=== PATIENT | male | born 1955 | race African-American/Black ===

== ENCOUNTER 2019-06-08 09:47 | Emergency (ER) | payer BC ==
[~2019-06-08] VITALS: Ht 190.5 cm; Wt 131.5 kg
[2019-06-08 10:36] VITALS: BP 161/89
--- NOTE | 2019-06-08 11:19 | RAD ---
EXAM: CT HEAD WITHOUT CONTRAST. HISTORY: Headache, hypertension. TECHNIQUE: Computed tomography of the head was performed without intravenous contrast. One or more of the following individualized dose reduction techniques were utilized for this examination: 1. Automated exposure control. 2. Adjustment of the mA and/or kV according to patient size. 3. Use of iterative reconstruction technique. COMPARISON: None. FINDINGS: There is no intracranial hemorrhage. Rocha-white differentiation is preserved. There is mild senescent volume loss. There is a small mucus retention cyst in the ethmoid air cells. The orbits are unremarkable. The temporal bones are unremarkable. The calvarium reveals no suspicious lesions. IMPRESSION: 1. No acute intracranial findings. Electronically signed by: Katiuska Ly MD (06/08/2019 11:16 AM) [facility]
--- NOTE | 2019-06-08 11:47 | RAD ---
CHEST PA LATERAL History: Headache, high blood pressure Comparison: November 28, 2010 Findings: 2 views of the chest are submitted. There is no infiltrate, pneumothorax, or effusion. Pericardial cardiac silhouette is within normal limits in size. Impression: 1. There is no radiographic evidence of acute cardiopulmonary disease. Electronically signed by: Eyal Ayers MD (06/08/2019 11:44 AM) [facility]
[2019-06-08 11:55] LABS: CALCIUM 9.5 mg/dL (8.5-10.1); CREATININE 1.1 mg/dL (0.7-1.3); GFR 82.3; POTASSIUM 3.6 mmol/L (3.5-5.1)
[2019-06-08 11:56] LABS: BASO % 1 % (0-3); EOS # 0.1 x10^3/uL (0.0-0.7); EOS % 2 % (0-3); HEMATOCRIT 43.3 % (39.0-53.0); HEMOGLOBIN 14.3 g/dL (13.0-17.5); LYMPH % 30 % (24-48); MEAN CORPUSCULAR HEMOGLOBIN 28 pg (25-35); MEAN CORPUSCULAR HGB CONC 33 g/dL (31-37); MEAN CORPUSCULAR VOLUME 85 fL (79-100); MONO # 0.4 x10^3/uL (0.0-1.1); MONO % 10 % (0-9); NEUT # 1.9 x10^3/uL (1.8-7.7); NEUT % 56 % (31-73); PLATELET COUNT 231 x10^3/uL (140-400); RED CELL DISTRIBUTION WIDTH 20.4 % (11.5-14.5); WHITE BLOOD COUNT 3.5 x10^3/uL (4.0-11.0)
[2019-06-08 12:01] LABS: ALBUMIN 4.2 g/dL (3.4-5.0); ALBUMIN/GLOBULIN RATIO 1.3 (1.0-1.7); MAGNESIUM 1.7 mg/dL (1.8-2.4); TOTAL BILIRUBIN 0.6 mg/dL (0.2-1.0); TOTAL PROTEIN 7.5 g/dL (6.4-8.2)
--- NOTE | 2019-06-08 13:17 | PHYS DOC ---
Past Medical History Past Medical History: GERD, High Cholesterol, Hypertension, Other Additional Past Medical Histor: SEASONAL ALLERGIES Past Surgical History: Other Additional Past Surgical Histo: BILATERAL KNEE ARTHROSCOPY, ROTATOR CUFF Alcohol Use: Occasionally Drug Use: None Adult General Chief Complaint Chief Complaint: HYPERTENSION HPI HPI Patient is a 63 year old male patient with history of hypertension, dyslipidemia, GERD and seasonal allergy who presents with complaint of high blood pressure. Patient states he has had diagnosis of hypertension for almost 20 years without problem but nasal bleeding and headache started 4 days ago with blood pressure of 160s over 100 and seen by his primary care physician and amlodipine was started beside 2 other blood pressure medication that he takes in the morning and also clonidine who takes at night for heart rate according to the patient. Patient states he had blood pressure of 160s today with headache that resolved at arrival to ER. Patient denies chest pain, shortness of breath, focal neuro deficit. Review of Systems Review of Systems Constitutional: Denies fever or chills [] Eyes: Denies change in visual acuity, redness, or eye pain [] HENT: Denies nasal congestion or sore throat [] Respiratory: Denies cough or shortness of breath [] Cardiovascular: No additional information not addressed in HPI [] GI: Denies abdominal pain, nausea, vomiting, bloody stools or diarrhea [] : Denies dysuria or hematuria [] Musculoskeletal: Denies back pain or joint pain [] Integument: Denies rash or skin lesions [] Neurologic: Denies focal weakness or sensory changes, reports headache [] Endocrine: Denies polyuria or polydipsia [] All other systems were reviewed and found to be within normal limits, except as documented in this note. Physical Exam Physical Exam Constitutional: Well developed, well nourished, no acute distress, non-toxic appearance. [] HENT: Normocephalic, atraumatic, bilateral external ears normal, oropharynx moist, no oral exudates, nose normal. [] Eyes: PERRLA, EOMI, conjunctiva normal, no discharge. [] Neck: Normal range of motion, no tenderness, supple, no stridor. [] Cardiovascular:Heart rate regular rhythm, no murmur [] Lungs & Thorax: Bilateral breath sounds clear to auscultation [] Abdomen: Bowel sounds normal, soft, no tenderness, no masses, no pulsatile masses. [] Skin: Warm, dry, no erythema, no rash. [] Back: No tenderness, no CVA tenderness. [] Extremities: No tenderness, no cyanosis, no clubbing, ROM intact, no edema. [] Neurologic: Alert and oriented X 3, normal motor function, normal sensory function, no focal deficits noted. [] Psychologic: Affect anxious, judgement normal, mood normal. [] Current Patient Data Vital Signs Vital Signs Date Time Temp Pulse Resp B/P (MAP) Pulse Ox O2 Delivery O2 Flow Rate FiO2 06/08/19 10:36 98.2 64 18 161/89 (113) 96 Room Air 98.2 Lab Values Laboratory Tests Test 06/08/19 11:00 White Blood Count 3.5 x10^3/uL (4.0-11.0) L Red Blood Count 5.10 x10^6/uL (4.30-5.70) Hemoglobin 14.3 g/dL (13.0-17.5) Hematocrit 43.3 % (39.0-53.0) Mean Corpuscular Volume 85 fL (79-100) Mean Corpuscular Hemoglobin 28 pg (25-35) Mean Corpuscular Hemoglobin Concent 33 g/dL (31-37) Red Cell Distribution Width 20.4 % (11.5-14.5) H Platelet Count 231 x10^3/uL (140-400) Neutrophils (%) (Auto) 56 % (31-73) Lymphocytes (%) (Auto) 30 % (24-48) Monocytes (%) (Auto) 10 % (0-9) H Eosinophils (%) (Auto) 2 % (0-3) Basophils (%) (Auto) 1 % (0-3) Neutrophils # (Auto) 1.9 x10^3/uL (1.8-7.7) Lymphocytes # (Auto) 1.0 x10^3/uL (1.0-4.8) Monocytes # (Auto) 0.4 x10^3/uL (0.0-1.1) Eosinophils # (Auto) 0.1 x10^3/uL (0.0-0.7) Basophils # (Auto) 0.0 x10^3/uL (0.0-0.2) Platelet Estimate Adequate (ADEQUATE) Anisocytosis Mod Prothrombin Time 12.0 SEC (11.7-14.0) Prothrombin Time INR 0.9 (0.8-1.1) Sodium Level 141 mmol/L (136-145) Potassium Level 3.6 mmol/L (3.5-5.1) Chloride Level 102 mmol/L (98-107) Carbon Dioxide Level 29 mmol/L (21-32) Anion Gap 10 (6-14) Blood Urea Nitrogen 18 mg/dL (8-26) Creatinine 1.1 mg/dL (0.7-1.3) Estimated GFR (Cockcroft-Gault) 82.3 BUN/Creatinine Ratio 16 (6-20) Glucose Level 145 mg/dL (70-99) H Calcium Level 9.5 mg/dL (8.5-10.1) Magnesium Level 1.7 mg/dL (1.8-2.4) L Total Bilirubin 0.6 mg/dL (0.2-1.0) Aspartate Amino Transferase (AST) 16 U/L (15-37) Alanine Aminotransferase (ALT) 20 U/L (16-63) Alkaline Phosphatase 58 U/L (46-116) Creatine Kinase 109 U/L (39-308) Troponin I Quantitative < 0.017 ng/mL (0.000-0.055) FZ-Tia-A-Type Natriuretic Peptide 10 pg/mL (0-124) Total Protein 7.5 g/dL (6.4-8.2) Albumin 4.2 g/dL (3.4-5.0) Albumin/Globulin Ratio 1.3 (1.0-1.7) Thyroid Stimulating Hormone (TSH) 0.723 uIU/mL (0.358-3.74) Laboratory Tests 06/08/19 11:00 Laboratory Tests 06/08/19 11:00 EKG EKG EKG interpreted by me. EKG at 1119 showed sinus rhythm at rate of 66 with arrhythmia, otherwise normal EKG. Radiology/Procedures Radiology/Procedures [facility] [address] [place] [address] IMAGING REPORT Signed PATIENT: DARIN DEAL ACCOUNT: [id number] : 1955 LOCATION: ER AGE: 63 SEX: M EXAM STATUS: REG ER ORD. PHYSICIAN: KEN AVILA MD REASON: headache and high blood. PROCEDURE: CHEST PA & LATERAL CHEST PA LATERAL History: Headache, high blood pressure Comparison: November 28, 2010 Findings: 2 views of the chest are submitted. There is no infiltrate, pneumothorax, or effusion. Pericardial cardiac silhouette is within normal limits in size. Impression: 1. There is no radiographic evidence of acute cardiopulmonary disease. Electronically signed by: Yessy Ca MD (06/08/2019 11:44 AM) [email or web address] DICTATED and SIGNED BY: YESSY CA MD DATE: 06/08/19 1144 [facility] [address] [place], [place] [id number] IMAGING REPORT Signed PATIENT: DARIN DEAL ACCOUNT: [id number] : 1955 LOCATION: ER AGE: 63 SEX: M EXAM STATUS: REG ER ORD. PHYSICIAN: KEN AVILA MD REASON: headache and high blood pressure PROCEDURE: CT HEAD WO CONTRAST EXAM: CT HEAD WITHOUT CONTRAST. HISTORY: Headache, hypertension. TECHNIQUE: Computed tomography of the head was performed without intravenous contrast. One or more of the following individualized dose reduction techniques were utilized for this examination: 1. Automated exposure control. 2. Adjustment of the mA and/or kV according to patient size. 3. Use of iterative reconstruction technique. COMPARISON: None. FINDINGS: There is no intracranial hemorrhage. Rocha-white differentiation is preserved. There is mild senescent volume loss. There is a small mucus retention cyst in the ethmoid air cells. The orbits are unremarkable. The temporal bones are unremarkable. The calvarium reveals no suspicious lesions. IMPRESSION: 1. No acute intracranial findings. Electronically signed by: Katiuska Ly MD (06/08/2019 11:16 AM) [facility] DICTATED and SIGNED BY: ROBERTO LY MD DATE: 06/08/19 1116 Course & Med Decision Making Course & Med Decision Making Pertinent Labs and Imaging studies reviewed. (See chart for details) Evaluation of patient in ER showed 63-year-old female patient with complaining of uncontrolled blood pressure. Patient had unremarkable physical exam and labs and EKG and CT head and chest x-ray. Patient had blood pressure of 160s at arrival to ER that gradually decreased to 140s. Patient currently taking 2 blood pressure medication in the morning and clonidine at night and working 5 nights a week. Patient states his blood pressure usually getting high blood pressure between morning and night. Patient was advised to take amlodipine at lunch and record his blood pressure and check with his primary care physician. Dragon Disclaimer Dragon Disclaimer This electronic medical record was generated, in whole or in part, using a voice recognition dictation system. Departure Departure Impression: Primary Impression: Hypertension, accelerated Additional Impressions: Leukopenia Hypomagnesemia Disposition: HOME, SELF-CARE (at 1315) Condition: IMPROVED Referrals: VERONICA ZIMMERMAN MD (PCP) Patient Instructions: Form - Blood Pressure Record Sheet, How to Take Your Blood Pressure, [id number], Managing Your High Blood Pressure Additional Instructions: Continue your home blood pressure medication Follow-up with your primary care physician as scheduled for tomorrow Return to ER if not getting better Problem Qualifiers Additional Impressions: Leukopenia Leukopenia type: unspecified Qualified Codes: D72.819 - Decreased white blood cell count, unspecified KEN AVILA MD Jun 08, 2019 13:17
[2019-06-08 14:21] LABS: PLT ESTIMATE ADEQUATE (ADEQUATE)
[2019-06-08 14:22] LABS: ANISOCYTOSIS MOD
--- NOTE | 2019-06-08 16:34 | EKG ---
[facility] [address] [place] [address] Test Date: 2019-06-08 Test Time: 11:19:25 Pat Name: DARIN DEAL Department: Room: Gender: M Records Analysis Manager: : 1955 Requested By: KEN AVILA Order Number: [id number] Reading MD: Measurements Intervals [place] Rate: 66 P: 46 MD: 162 QRS: 24 QRSD: 92 T: 19 QT: 374 QTc: 393 Interpretive Statements SINUS ARRHYTHMIA OTHERWISE NORMAL ECG No previous ECG available for comparison
== END 2019-06-08 13:32 | disposition home or self-care (01) ==
LOC: ER 09:47
DX: I10 Essential (primary) hypertension (principal); D72.819 Decreased white blood cell count, unspecified; E83.42 Hypomagnesemia; K21.9 Gastro-esophageal reflux disease without esophagitis; E78.00 Pure hypercholesterolemia, unspecified; J30.2 Other seasonal allergic rhinitis; Z98.890 Other specified postprocedural states
CPT/HCPCS: 36415; 70450; 71046; 80053; 82550; 83735; 83880; 84443; 84484; 85025; 85610; 93005; 99285